=== PATIENT | female | born 1940 | race Caucasian/White ===

== ENCOUNTER 2021-09-08 09:13 | Emergency (ER) | payer MEDICARE, OTHER ==
--- NOTE | 2021-09-08 09:56 | XRAY Report ---
PROCEDURE: Ribs w/PA Chest RT INDICATIONS: Trauma, tripped and fell, right rib pain TECHNIQUE: 2 views of the right ribs were acquired, along with a single view chest. COMPARISON: None FINDINGS: Surgical changes and devices: None. Bones and chest wall: No fractures or dislocations. No suspicious bony lesions. Overlying soft tis sues appear unremarkable. Lungs and pleura: No pleural effusions or pneumothorax. There is patchy airspace disease in the left midlung and in the left lung base. Possible left lung nodule measuring 1.1 cm in the left lung base. Mediastinum: Mediastinal contours appear normal. Heart size is normal. IMPRESSION: Mildly displaced fracture of the right anterior ninth rib. Left basilar airspace disease and possible nodule. CT chest with IV contrast recommended. Reviewed by: Frank Naidu MD on 09/08/2021 9:54 AM PDT Approved by: Frank Naidu MD on 09/08/2021 9:54 AM PDT Station ID: [id number]
--- NOTE | 2021-09-08 10:10 | ED Physician Documentation ---
PD HPI Fall - Stated complaint Stated Complaint: GLF - Chief complaint Chief Complaint: Resp - History obtained from History obtained from: Patient, Family - History of Present Illness Mechanism of injury: Tripped Fall distance: Standing position Where injury occurred: Other (friends house) Timing - onset: Last night Injury(ies) location: Chest (right lateral mid to lower chestwall.), Left Uppper Extremity (posterior elbow abrasion). No: Head, Neck, Abdomen Quality of pain: Pain, Sharp Associated symptoms: No: LOC, AMS, Neck pain, Weakness, Paresthesias Worsens with: Movement, Palpation, Other (breathing) Contributing factors: No: Anticoagulated Similar symptoms before: Has not had sx before Review of Systems Constitutional: denies: Fever, Chills Nose: denies: Rhinorrhea / runny nose, Congestion Throat: denies: Sore throat Cardiac: reports: Chest pain / pressure (right lateral ribs/chest). denies: Palpitations, Pedal edema, Calf pain Respiratory: denies: Cough, Wheezing GI: denies: Abdominal Pain, Nausea, Vomiting Skin: reports: Abrasion (s) (left elbow). denies: Laceration (s) Musculoskeletal: reports: Extremity pain (mild pain left elbow, but good full ROM.) Neurologic: denies: Focal weakness, Numbness PD PAST MEDICAL HISTORY - Past Medical History Cardiovascular: None Respiratory: None Neuro: None Endocrine/Autoimmune: None Musculoskeletal: Chronic back pain (lower back and takes Meloxicam 7.5 mg once daily currently. ) - Present Medications Home Medications: Ambulatory Orders Medication Instructions Recorded Confirmed Meloxicam [Mobic] 7.5 mg PO BID 15 Days #30 tablet 09/08/21 - Allergies Allergies/Adverse Reactions: Allergies Allergy/AdvReac Type Severity Reaction Status Date / Time No Known Drug Allergies Allergy Verified 09/08/21 09:24 - Living Situation Living Situation: reports: With spouse/s.o. Living Arrangement: reports: At home (visiting from out of town currently. ) PD ED PE NORMAL - Vitals Vital signs reviewed: Yes - General General: Alert and oriented X 3, No acute distress, Well developed/nourished - HEENT HEENT: Atraumatic - Neck Neck: Supple, no meningeal sign, No bony TTP, No adenopathy - Cardiac Cardiac: RRR, No murmur - Respiratory Respiratory: No respiratory distress, Clear bilaterally, Other (right lateral mid chest with tenderness from about 6-10 ribs. No crepitance nor deformity. No bruising seen. ) - Abdomen Abdomen: Soft, Non tender - Back Back: No spinal TTP - Derm Derm: Normal color, Warm and dry - Extremities Extremities: No tenderness to palpate, Normal ROM s pain, Other (left posterior elbow with mild abrasion, but has full ROM and no effusion. ) - Neuro Neuro: Alert and oriented X 3, No motor deficit, Normal speech Results - Vitals Vitals: Vital Signs - 24 hr 09/08/21 09/08/21 09:21 10:53 Temperature 36.2 C L Heart Rate 67 64 Respiratory 20 14 Rate Blood Pressure 144/121 H 156/85 H O2 Saturation 97 99 Oxygen O2 Source Room air - Rads (name of study) right ribs with chest Radiology: Prelim report reviewed (9th right lateral rib fracture. Lungs okay. ), See rad report PD MEDICAL DECISION MAKING - ED course Complexity details: reviewed results (9th rib fracture. No lung injury. Abd not tender. ), considered differential, d/w patient Departure - Departure Disposition: 01 Home, Self Care Clinical Impression: Fall from slip, trip, or stumble Qualifiers: Encounter type: initial encounter Qualified Code(s): W01.0XXA - Fall on same level from slipping, tripping and stumbling without subsequent striking against object, initial encounter Chest wall contusion Qualifiers: Encounter type: initial encounter Laterality: right Qualified Code(s): S20.211A - Contusion of right front wall of thorax, initial encounter Rib fracture Qualifiers: Encounter type: initial encounter Rib fracture type: single rib Fracture type: closed Laterality: right Qualified Code(s): S22.31XA - Fracture of one rib, right side, initial encounter for closed fracture Condition: Stable Record reviewed to determine appropriate education?: Yes Instructions: ED Fx Rib Prescriptions: Meloxicam [Mobic] 7.5 mg PO BID 15 Days #30 tablet Comments: Activity as tolerated. Purposeful deep breathing several times a day and light walking and activity is good for lung expansion and good airflow. If you need assistance getting up, it may be more comfortable for your to "give you a hug" and lift you by your trunk or hips rather than pulling on your arm or shoulder. There should be reasonable improvement in the pain over 3 to 5 days or so as the bruising and acute injury part decreases. Then there is improvement at about a week and a half or so as the healing rib stops movement. It is a good 4 to 6 weeks though for full healing before your not having any pain at all. Start with your meloxicam twice daily with food for a week or 2 and then resume to once daily. Add Tylenol every 4-6 hours if needed for pain or your oxycodone as needed for worse pain. It would likely need the narcotic pain medicine in the first week or so timeframe and then typically are able to have just Tylenol as a supplement. Follow-up with your primary care if not consistently improving well over the next couple of weeks. Return if needed. It transmitted your prescription for more meloxicam to [facility]ait[facility] in [place]. Discharge Date/Time: 09/08/21 10:53
[2021-09-08] MEDS ORDERED: oxyCODONE 5 MG TABLET PO STA (10:35)
[2021-09-08 10:56] VITALS: BP 156/85
== END 2021-09-08 10:53 | disposition home or self-care (01) ==
LOC: ED 09:13
DX: S22.31XA Fracture of one rib, right side, initial encounter for closed fracture (principal); S20.211A Contusion of right front wall of thorax, initial encounter; S50.312A Abrasion of left elbow, initial encounter; W01.0XXA Fall on same level from slipping, tripping and stumbling without subsequent striking against object, initial encounter; Y92.009 Unspecified place in unspecified non-institutional (private) residence as the place of occurrence of the external cause
CPT/HCPCS: 71101; 99283; 99284; A9270